=== PATIENT | male | born 1960 | race Caucasian/White ===

== ENCOUNTER 2021-12-01 12:00 | Emergency (ER) | payer OTHER, SELFPAY ==
[2021-12-01] VITALS (20 sets, daily range): BP systolic 118–144; BP diastolic 62–81; PULSE 0–67; RESP 12–27; TEMP 36.5; O2SAT 88–99
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
[2021-12-01] MEDS: Ondansetron 4 MG/2 ML VIAL IVP (12:19)
[2021-12-01] MEDS: HYDROmorphone 2 MG/ML VIAL 1 MG IVP (12:21)
[2021-12-01 12:26] LABS: Abs Immature Grans 0.09 10^3/uL (0.0-0.06); Absolute Basophil Count 0.02 10^3/uL (0.0-0.2); Absolute Eosinophil Count 0.19 10^3/uL (0.0-0.7); Absolute Lymphocyte Count 2.35 10^3/uL (1.2-3.4); Absolute Monocyte Count 0.55 10^3/uL (0.1-0.8); Absolute Neutrophil Count 5.82 10^3/uL (1.2-6.7); Basophils % 0.2; Eosinophils % 2.1; HCT 42.1 % (40.0-50.0); HGB 13.7 g/dL (13.5-17.5); Lymphocytes % 26.1; MCH 32.9 pg (27.0-33.0); MCHC 32.5 % (32.0-36.0); MCV 101 fL (80-95); Monocytes % 6.1; Neutrophils % 64.5; RBC 4.17 10^6/uL (4.36-5.78); RDW 13.4 % (11.8-14.1); RDW-SD 49.9 fL; WBC 9.02 10^3/uL (4.4-10.8)
[2021-12-01 12:35] LABS: ALT 39 U/L (16-63); AST 41 U/L (15-37); Albumin 4.2 g/dL (3.4-5.0); Alkaline Phosphatase 60 U/L (46-116); Anion Gap 9.9 mmol/L (3-11); BUN 22 mg/dL (7-18); Bilirubin, Total 0.7 mg/dL (0.2-1.0); CO2 28.1 mmol/L (21.0-32.0); CREATININE 0.9 mg/dL (0.70-1.30); Calcium 9.3 mg/dL (8.5-10.1); Chloride 103 mmol/L (98-107); Glucose 105 mg/dL (74-106); Magnesium 1.9 mg/dL (1.8-2.4); Potassium 3.8 mmol/L (3.5-5.1); Sodium 141 mmol/L (136-145); Total Protein 7.8 g/dL (6.4-8.2)
[2021-12-01 12:36] LABS: ETHANOL BLOOD < 3.0 mg/dL (<10)
[2021-12-01 12:42] LABS: Diff Comment Diff Reviewed
[2021-12-01 12:43] LABS: RBC Morphology Normal
[2021-12-01] MEDS: Omnipaque 350 MG/ML 100 ML BTL IJ (13:09)
[2021-12-01] MEDS: Normal Saline Flush 10 ML SYR IVP (13:10)
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
--- NOTE | 2021-12-01 14:11 | NUR.NOTE ---
c-collar has been removed per providers order
[2021-12-01 14:54] LABS: Bilirubin Negative (Negative); Blood Negative (Negative); Clarity Clear (Clear); Glucose Negative (Negative); Ketones Negative (Negative); Leukocyte Esterase Negative (Negative); Nitrite Negative (Negative); Specific Gravity 1.015 (1.005-1.025); Urobilinogen 0.2 EU/dL (Up TO 0.2)
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
== END 2021-12-01 15:19 | disposition home or self-care (01) ==
LOC: ER 15:39
PROVIDERS: Emergency Provider Nurse Practitioner Family
DX: S06.0X9A Concussion with loss of consciousness of unspecified duration, initial encounter (principal); S16.1XXA Strain of muscle, fascia and tendon at neck level, initial encounter; S00.81XA Abrasion of other part of head, initial encounter; M54.6 Pain in thoracic spine; S40.212A Abrasion of left shoulder, initial encounter; V19.9XXA Pedal cyclist (driver) (passenger) injured in unspecified traffic accident, initial encounter
CPT/HCPCS: 36415; 74177; 80053; 90471; 96374; 96375; 99285; 70450; 70486; 71260; 72125; 80320; 81003; 83735; 85025; 99284; J2405; J3490